=== PATIENT | female | born 1970 | race Caucasian/White ===

== ENCOUNTER → 2021-01-14 | Day surgery (SDC) | payer OTHER ==
[~2021-01-14] MED LIST: AMBIEN10 MG PO; METOCLOPRAMIDE HCL 10 MG/2ML VIAL ONE; PANTOPRAZOLE SO40 MG PO
[2021-01-14 16:25] VITALS: BP 114/82
== END | disposition home or self-care (01) ==
LOC: OR 12:28
PROVIDERS: ATTEND Internal Medicine Gastroenterology
DX: K20.90 Esophagitis, unspecified without bleeding (principal); K85.90 Acute pancreatitis without necrosis or infection, unspecified; K29.50 Unspecified chronic gastritis without bleeding; B96.81 Helicobacter pylori [H. pylori] as the cause of diseases classified elsewhere; K44.9 Diaphragmatic hernia without obstruction or gangrene; K21.9 Gastro-esophageal reflux disease without esophagitis; K58.9 Irritable bowel syndrome, unspecified; R19.7 Diarrhea, unspecified; R03.0 Elevated blood-pressure reading, without diagnosis of hypertension; F41.9 Anxiety disorder, unspecified; F17.210 Nicotine dependence, cigarettes, uncomplicated; Z88.8 Allergy status to other drugs, medicaments and biological substances; Z01.812 Encounter for preprocedural laboratory examination; Z20.822 Contact with and (suspected) exposure to COVID-19; Z68.29 Body mass index [BMI] 29.0-29.9, adult
CPT/HCPCS: 43239; C9113; J2765; U0002